=== PATIENT | female | born 1990 | race Caucasian/White ===

== ENCOUNTER → 2021-10-09 | Day surgery (SDC) | payer BC ==
[~2021-10-09] MED LIST: ESCITALOPRAM OX10 MG PO; GABAPENTIN600 MG PO; PROTONIX 40 MG40 M1 PO
== END | disposition home or self-care (01) ==
LOC: OR 07:30
DX: M47.816 Spondylosis without myelopathy or radiculopathy, lumbar region (principal); Z79.899 Other long term (current) drug therapy
CPT/HCPCS: 76000; 84703; J1040